=== PATIENT | male | born 1980 | race Caucasian/White ===

== ENCOUNTER 2022-02-19 12:16 | Emergency (ER) | payer OTHER ==
[2022-02-19 13:07] VITALS: BP 112/71; PULSE 83; RESP 20; TEMP 98
--- NOTE | 2022-02-19 14:13 | XR ---
EXAMINATION TYPE: XR ribs bilat w pa chest xray DATE OF EXAM: 02/19/2022 CLINICAL HISTORY: Chest and right greater than left rib pain after recent injury. TECHNIQUE: Single frontal view of the chest is obtained. A frontal and oblique images of the bilatera l ribs. COMPARISON: None FINDINGS: There is no focal air space opacity, pleural effusion, or pneumothorax seen. The cardiac silhouette size is within normal limits. The osseous structures are intact. Dedicated images of the bilateral ribs show no acute displaced fracture on the left. There are 2 mini franki displaced fractures involving the right lateral ninth and 10th ribs. Suspect old healed fractur es of the posterolateral right ninth and 10th ribs. IMPRESSION: Minimally displaced acute fractures of the lateral right ninth and 10th ribs. No acute pu lmonary process.
[2022-02-19] MEDS ORDERED: KETOROLAC 15 MG/ML 1 ML VIAL IM STA (14:23)
--- NOTE | 2022-02-19 14:25 | ED ---
General Adult HPI - General Chief complaint: Recheck/Abnormal Lab/Rx Stated complaint: rib pain Time Seen by Provider: 02/19/22 13:08 Source: patient Mode of arrival: ambulatory Limitations: no limitations - History of Present Illness Initial comments: Patient is a 42-year-old M presenting to the emergency room with complaints of rib pain radiating down into his flank region and upwards into the chest ongoing since playing basketball on February 14 and having another player fall on him. He does report pain with deep inspiration and increased pain with cough. 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 He denies any chest pain not related to the trauma. He denies any difficulty breathing not related to his inability to take in a deep breath from pain and his refusal for coughing. He denies any abdominal pain not directly related to radiculopathy from his ribs nausea or vomiting. He denies any fevers or chills. He has no significant past medical history not related to substance abuse and psychiatric illnesses. - Related Data Allergies Allergy/AdvReac Type Severity Reaction Status Date / Time No Known Allergies Allergy Verified 02/19/22 13:07 Review of Systems ROS Statement: Those systems with pertinent positive or pertinent negative responses have been documented in the HPI. ROS Other: All systems not noted in ROS Statement are negative. Past Medical History Past Medical History: No Reported History History of Any Multi-Drug Resistant Organisms: None Reported Past Surgical History: No Surgical Hx Reported Smoking Status: Vaper Past Alcohol Use History: None Reported Additional Drug Use History / Comment(s): Inhalants General Exam Limitations: no limitations General appearance: alert, in no apparent distress Head exam: Present: atraumatic, normocephalic, normal inspection Eye exam: Present: normal appearance, PERRL, EOMI. Absent: scleral icterus, conjunctival injection, periorbital swelling ENT exam: Present: normal exam, mucous membranes moist Neck exam: Present: normal inspection, full ROM Respiratory exam: Present: normal lung sounds bilaterally, chest wall tenderness (Right-sided right flank radiating anteriorly mid chest wall to mid abdomen/ flank region). Absent: respiratory distress, wheezes, rales, rhonchi, stridor Cardiovascular Exam: Present: regular rate, normal rhythm, normal heart sounds. Absent: systolic murmur, diastolic murmur, rubs, gallop, clicks GI/Abdominal exam: Present: soft, tenderness (Right flank), normal bowel sounds. Absent: distended, guarding, rebound, rigid Rectal exam: Present: deferred Extremities exam: Present: normal inspection. Absent: pedal edema, joint swelling Back exam: Present: normal inspection Neurological exam: Present: alert, oriented X3, CN II-XII intact Psychiatric exam: Present: normal affect, normal mood Skin exam: Present: warm, dry, intact, normal color. Absent: rash Course Vital Signs 02/19/22 13:04 Temperature 98 F Pulse Rate 83 Respiratory 20 Rate Blood Pressure 112/71 O2 Sat by Pulse 96 Oximetry Medical Decision Making - Medical Decision Making 42-year-old male presenting with pain in the right ribs radiating upwards anteriorly and downwards to the flank region without any other associated symptoms. Will obtain x-ray of the ribs and chest and monitor symptoms. No indication for other diagnostic imaging or laboratory studies at this time. X-ray of bilateral ribs and chest AP interpreted by me reveals no acute radial pulmonary disease, no infiltration or consolidation. 910 10th right rib lateral fractures noted with minimal displacement. The setting of fractures with pain radiating to the flank region will obtain CT of the abdomen. Pain persisting will give dose of IM Toradol. Pain improved with Toradol. CT of the abdomen image interpreted by me shows no free fluid in the abdomen. No evidence of live liver laceration or other trauma concerns. Radiologist report reviewed. No indication for further diagnostic imaging or any laboratory studies. Will discharge back to [place] in stable condition. Advised activity as tolerated along with the use of ibuprofen [id number] as needed for pain. Advise follow-up with PCP and return parameters to the emergency room reviewed. Case discussed with Dr. Carreon. - Radiology Data Radiology results: report reviewed, image reviewed Disposition Clinical Impression: Fracture of rib of right side Disposition: HOME SELF-CARE Condition: Stable Instructions (If sedation given, give patient instructions): Rib Fracture (ED) Additional Instructions: Please utilize [id number] ibuprofen as needed for pain. Activity as tolerated encouraged. Please follow-up with your primary care provider. Please return to the Emergency Department if symptoms worsen or any other concerns. Is patient prescribed a controlled substance at d/c from ED?: No Referrals: None,Stated [Primary Care Provider] - 1-2 days Time of Disposition: 16:11
--- NOTE | 2022-02-19 15:44 | CT ---
EXAMINATION TYPE: CT abdomen wo con DATE OF EXAM: 02/19/2022 COMPARISON: None HISTORY: Pt had someone fall on them. Per xray Minimally displaced acute fractures of the lat 9th/10t h rib. PA requesting larger FOV for abdominal scan, didn't want chest CT. Concerned with liver. CT DLP: 341.5 mGycm Automated exposure control for dose reduction was used. TECHNIQUE: Helical acquisition of images was performed from the lung bases through the top of iliac crest to include entire abdomen. CONTRAST: Performed without Oral Contrast and without IV contrast. FINDINGS: The lung bases are clear The solid visceral organs of the upper abdomen are normal in size and there is no evidence of trauma. There are no renal calcifications or hydronephrosis or perinephric fluid collections. There is no retroperitoneal adenopathy or hemorrhage. The caliber of the abdominal aorta is normal. The bowel loops are normal in caliber. There is no free intraperitoneal air or fluid. The osseous structures are intact. IMPRESSION: No evidence of trauma.
== END 2022-02-19 16:23 | disposition home or self-care (01) ==
LOC: EC 12:16
DX: S22.31XA Fracture of one rib, right side, initial encounter for closed fracture (principal); F17.290 Nicotine dependence, other tobacco product, uncomplicated; W50.0XXA Accidental hit or strike by another person, initial encounter; Y93.61 Activity, american tackle football
CPT/HCPCS: 71111; 74150; 99284; 96372; J1885